=== PATIENT | female | born 1990 | race Hispanic/Latino ===

== ENCOUNTER → 2016-04-20 | Outpatient (REF) | payer OTHER, MEDICAID | LOC: M SFHCLERA 10:16 | PROVIDERS: ATTEND Family Medicine | DX: Z02.1 Encounter for pre-employment examination (principal) ==

== ENCOUNTER → 2016-04-23 | Outpatient (REF) | payer OTHER, MEDICAID | LOC: M SFHCLERA 10:46 | PROVIDERS: ATTEND Family Medicine | DX: Z02.1 Encounter for pre-employment examination (principal) ==

== ENCOUNTER → 2016-04-30 | Outpatient (REF) | payer OTHER, MEDICAID | LOC: M SFHCLERA 15:07 | PROVIDERS: ATTEND Family Medicine | DX: F34.1 Dysthymic disorder (principal) ==

== ENCOUNTER → 2016-05-10 | Outpatient (REF) | payer OTHER, MEDICAID | LOC: M SFHCLERA 14:36 | PROVIDERS: ATTEND Family Medicine | DX: K29.00 Acute gastritis without bleeding (principal) ==

== ENCOUNTER → 2016-09-04 | Outpatient (REF) | payer OTHER, MEDICAID | LOC: M SFHCLERA 14:49 | PROVIDERS: ATTEND Family Medicine | DX: R10.13 Epigastric pain (principal); Z53.9 Procedure and treatment not carried out, unspecified reason ==